=== PATIENT | female | born 1955 | race Caucasian/White ===

== ENCOUNTER → 2020-03-12 08:20 | Outpatient (CLI) | payer BC, SELFPAY ==
[2019-11-14 16:05] VITALS: BMI 35.4
[2020-03-12 10:43] LABS: Anion Gap 7 (5-15); BUN 16 mg/dL (7-18); BUN/Creat Ratio 24.8 RATIO (10-20); Calcium,Total 8.9 mg/dL (8.5-10.1); Chloride 109 mmol/L (98-107); Cholesterol 171 mg/dL (200); Creatinine, Serum 0.64 mg/dL (0.55-1.02); EST Glomerular Filtration Rate 99 mL/min (>60); Est Glom Filt Rate - Afr Amer 119 mL/min (>60); Glucose 93 mg/dL (74-106); High Density Lipoprotein 58 mg/dL; Potassium 4.1 mmol/L (3.5-5.1); Sodium Level 144 mmol/L (136-145); Triglycerides 85 mg/dL; Very Low Density Lipoprotein 17 mg/dL (5-40)
== END ==
PROVIDERS: PCP Family Medicine; Referring Provider Family Medicine; Visit Provider Family Medicine
DX: Z13.220 Encounter for screening for lipoid disorders (principal); Z13.1 Encounter for screening for diabetes mellitus
CPT/HCPCS: 36415; 80048; 80061

== ENCOUNTER → 2020-03-12 12:35 | Outpatient (CLI) | payer BC, SELFPAY ==
[2019-11-14 16:05] VITALS: BMI 35.4
--- NOTE | 2020-03-12 12:38 | BI_ITS ---
MAMMOGRAPHY - BILATERAL SCREENING REASON FOR EXAM: Female, 65 years old. Routine annual screening examination. PERTINENT HISTORY: Mother with breast cancer. TECHNIQUE: Digital bilateral breast brinda (3D mammographic acquisition) in the CC and MLO projections. 2-D mediolateral oblique (MLO) and craniocaudad (CC) views of both breasts were obtained. CAD: Full Field Digital Mammography with Computer Added Detection was performed. COMPARISON: Comparison is made with prior examination dated December 13, 2015. FINDINGS: Breast Composition: There are scattered areas of fibroglandular density. There are no dominant masses or suspicious calcifications. No other significant abnormalities are identified. There has been no significant change since the prior study. BI/SCREEN MAMM (CAD) W/BRINDA BILAT IMPRESSION: Stable bilateral screening mammogram. Yearly follow-up mammogram recommended. (A) ASSESSMENT CATEGORY: BIRADS Category 1: Negative. A letter regarding these results will be sent to the patient by the facility within 30 days. Approximately 10% of breast cancers are not detected by mammography. A normal mammogram should not delay biopsy of a clinically suspicious abnormality. [id number] Electronically Signed: Juventino Hernandez, at 9:16 EDT , Service support ,
--- NOTE | 2020-03-12 13:27 | STEWCON_ITS ---
Reason For Study: CHEST PAIN Stress Results Protocol: Stress Echocardiogram Maximum Predicted HR: 157 bpm Target HR: 133 bpm % Maximum Predicted HR: 103 % DurationHeart Rate Stage (mm:ss) (bpm) BP Comment BASELINE 72 118/78DILUTED DEFINITY 2 CC USED ARIEL PROTOCOL- STAGE 1 3:00 118 124/72NO SX ARIEL PROTOCOL- STAGE 2 3:00 129 158/78NO SX ARIEL PROTOCOL- STAGE 3 3:00 162 162/80FATIGUE, NO CP RECOVERY 85 120/78 Stress Duration: 9:00 mm:ss Maximum Stress HR: 162 bpm Baseline Echocardiogram Findings Stress Echo Wall motion Data Resting WM Intermediate WM Stress WM Resting Wall Motion Wall Motion Stress All segments Normal. All segments Hyperkinetic. Ejection Fraction 55 %. Ejection Fraction 65 %. Stress Results Heart rate response: Appropriate Blood pressure response: Normal resting blood pressure-appropriate response Arrhythmias: No cardiac dysrhythmias during exercise or recovery Functional capacity: Good Stopped secondary to: Fatigue. EKG Data Baseline ECG: Sinus rhythm; incomplete right bundle branch block pattern. Peak exercise ECG: No obvious ECG changes. Symptoms with Stress No complaint of chest discomfort during exercise or recovery. Interpretation Summary 1. Technically difficult study 2. Contrast injection performed 3. Negative (adequate) stress echocardiogram Ordering Physician: Kurtis Malik Referring Physician: Kurtis Malik Performed By: Aleta Odom, MEERA, RVT
== END ==
PROVIDERS: PCP Family Medicine; Referring Provider Family Medicine; Visit Provider Family Medicine
DX: Z12.31 Encounter for screening mammogram for malignant neoplasm of breast (principal); R07.9 Chest pain, unspecified
CPT/HCPCS: 77063; 77067; 93017; 93350; Q9957; A4216; C8928

== ENCOUNTER → 2020-04-05 14:56 | Outpatient (CLI) | payer BC, SELFPAY ==
[2019-11-14 16:05] VITALS: BMI 35.4
--- NOTE | 2020-04-05 14:58 | RAD_ITS ---
STUDY: X-RAY - LEFT KNEE REASON FOR EXAM: Female, 65 years old. Pain with no known injury. TECHNIQUE: 4 view(s) of the knee. COMPARISON: 07/24/2014 left knee radiographs. 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 There is now complete loss of joint space medially, and mild degenerative lateral offset of the tibia in relation to the femur. Small joint effusion. No apparent acute fracture or osseous destruction. 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 Small joint effusion. Electronically Signed: Jaiden Buck, at 7:53 EDT Tel , Service support ,
== END ==
PROVIDERS: PCP Family Medicine; Referring Provider Family Medicine; Visit Provider Family Medicine
DX: M25.569 Pain in unspecified knee (principal)
CPT/HCPCS: 73564

== ENCOUNTER → 2021-01-09 11:12 | Outpatient (CLI) | payer OTHER, SELFPAY ==
[2020-12-14 08:36] VITALS: BMI 27.1
--- NOTE | 2021-01-09 11:16 | RAD_ITS ---
STUDY: X-RAY - LEFT KNEE REASON FOR EXAM: Left knee pain, left knee injury last night. TECHNIQUE: 4 view(s) of the knee. COMPARISON: Radiographs 04/05/2020. FINDINGS: Normal visualized distal femur. Normal visualized proximal tibia and fibula. Normal proximal tibiofibular articulation. There is severe joint space loss of the medial femorotibial compartment and lateral subluxation of the tibia as on the prior study. There are marginal osteophytes without joint space narrowing of the lateral femorotibial compartment. There are marginal osteophytes with moderate joint space narrowing of the patellofemoral articulation. There is a joint effusion. RAD/Knee 4 or More Views IMPRESSION: Arthrosis of the medial femorotibial and patellofemoral compartments. Joint effusion. Electronically Signed: Mo Gonzales MD at 11:42 EDT Tel , Service support ,
== END ==
PROVIDERS: PCP Family Medicine; Referring Provider Family Medicine; Visit Provider Family Medicine
DX: S89.92XA Unspecified injury of left lower leg, initial encounter (principal)
CPT/HCPCS: 73564

== ENCOUNTER → 2021-03-28 13:51 | Outpatient (CLI) | payer OTHER, SELFPAY ==
[2020-12-14 08:36] VITALS: BMI 27.1
--- NOTE | 2021-03-28 13:54 | BI_ITS ---
MAMMOGRAPHY - BILATERAL SCREENING REASON FOR EXAM: Female, 66 years old. Routine annual screening examination. PERTINENT HISTORY: Sister with breast cancer. Mother with breast cancer. TECHNIQUE: Digital bilateral breast brinda (3D mammographic acquisition) in the CC and MLO projections. 2-D mediolateral oblique (MLO) and craniocaudad (CC) views of both breasts were obtained. CAD: Full Field Digital Mammography with Computer Added Detection was performed. COMPARISON: Comparison is made with prior study dated 03/12/2020. FINDINGS: Breast Composition: There are scattered areas of fibroglandular density. There are no dominant masses or suspicious calcifications. Stable small benign-appearing axillary lymph nodes. No other significant abnormalities are identified. There has been no significant change since the prior study. BI/SCRN MAMM (CAD)W/BRINDA BILAT IMPRESSION: Stable bilateral screening mammogram. Yearly follow-up mammogram recommended. (A) ASSESSMENT CATEGORY: BIRADS Category 2: Benign. A letter regarding these results will be sent to the patient by the facility within 30 days. Approximately 10% of breast cancers are not detected by mammography. A normal mammogram should not delay biopsy of a clinically suspicious abnormality. [id number] Electronically Signed: Juventino Hernandez MD at 14:49 EDT , Service support ,
== END ==
PROVIDERS: PCP Family Medicine; Referring Provider Family Medicine; Visit Provider Family Medicine
DX: Z12.31 Encounter for screening mammogram for malignant neoplasm of breast (principal)
CPT/HCPCS: 77063; 77067

== ENCOUNTER → 2021-06-11 07:21 | Outpatient (CLI) | payer OTHER, SELFPAY ==
[2020-12-14 08:36] VITALS: BMI 27.1
[2021-06-11 10:25] LABS: Absolute Lymphocyte Count 1.25 X10^3/uL (0.83-4.51); Absolute Neutrophil Count 2.8 X10^3/uL (2.0-7.7); Basophil# 0.03 X10^3/uL; Basophil% 0.6 % (0-1); Eosinophil# 0.17 X10^3/uL; Eosinophils% 3.5 % (0-5); Hematocrit 42.4 % (37-47); Hemoglobin 13.7 g/dL (12.0-15.0); Lymphocyte # 1.25 X10^3/ul (0.83-4.51); Lymphocyte % 25.8 % (19-41); Mean Corp Hgb Conc 32.3 g/dL (32-36); Mean Corpuscular Hgb 31.2 pg (27.0-32.0); Mean Corpuscular Volume 96.6 fL (81-99); Mean Platelet Vol. 9.6 fl (6.2-12.0); Monocyte# 0.56 X10^3/uL; Monocyte% 11.6 % (0-10); NRBC Flagged by Analyzer 0 % (0-5); Neutrophil % 57.9 % (47-70); Platelet Count 234 K/mm3 (150-450); RBC Distribution Width SD 42.9 fl (35.1-43.9); Red Blood Count 4.39 M/mm3 (4.2-5.4); White Blood Count 4.8 K/mm3 (4.4-11.0)
[2021-06-11 10:58] LABS: ALB/GLOB Ratio 1.1 RATIO (0.9-2.4); AST(SGOT) 11 U/L (15-37); Alanine Aminotransfer ALT/SGPT 24 U/L (13-56); Albumin, Serum 3.6 g/dL (3.2-5.0); Alkaline Phosphatase 108 U/L (45-117); Anion Gap 6 (5-15); BUN 19 mg/dL (7-18); BUN/Creat Ratio 39.2 RATIO (10-20); Calcium,Total 8.8 mg/dL (8.5-10.1); Chloride 107 mmol/L (98-107); Creatinine, Serum 0.48 mg/dL (0.55-1.02); EST Glomerular Filtration Rate 137 mL/min (>60); Est Glom Filt Rate - Afr Amer 165 mL/min (>60); Globulin 3.3 g/dL (2.2-4.2); Glucose 78 mg/dL (74-106); Potassium 3.7 mmol/L (3.5-5.1); Protein, Total 6.9 g/dL (6.4-8.2); Sodium Level 141 mmol/L (136-145)
[2021-06-12 14:59] LABS: ANTINUCLEAR ANTIBODIES DIRECT Positive (Negative)
[2021-06-17 12:09] LABS: Anti-Centromere B Ab <0.2 AI (0.0-0.9); Anti-Chromatin <0.2 AI (0.0-0.9); Anti-Jo <0.2 AI (0.0-0.9); Anti-Scleroderma-70 AB <0.2 AI (0.0-0.9); RNP Ab <0.2 AI (0.0-0.9); SJOGREN'S Anti-SS-A test 1.2 AI (0.0-0.9); SJOGREN'S Anti-SS-B test < 0.2 AI (0.0-0.9); Smith Ab <0.2 AI (0.0-0.9)
[2021-06-17 16:55] LABS: Anti-dsDNA Ab 3 IU/mL (0-9)
== END ==
PROVIDERS: PCP Family Medicine; Referring Provider Family Medicine; Visit Provider Family Medicine
DX: R07.89 Other chest pain (principal)
CPT/HCPCS: 36415; 80053; 85025; 86038; 86225; 86235

== ENCOUNTER → 2021-06-18 17:54 | Outpatient (CLI) | payer OTHER, SELFPAY | PROVIDERS: PCP Family Medicine; Visit Provider Family Medicine | DX: U07.1 COVID-19 (principal) | CPT/HCPCS: 87635; U0005; U0003 ==

== ENCOUNTER 2021-06-23 14:26 | Outpatient (CLI) | payer OTHER, SELFPAY ==
[2021-06-23] MEDS: 0.9% Saline Lock 10 ML Syringe IV (14:55)
[2021-06-23 15:03] VITALS: BP 101/41; PULSE 73; RESP 16; TEMP 37.1; O2SAT 96; BMI 29.2
[2021-06-23 15:39] VITALS: BP 109/65; PULSE 78; RESP 16; TEMP 36.8; O2SAT 97
[2021-06-23 16:39] VITALS: BP 110/64; PULSE 85; RESP 16; TEMP 37.6; O2SAT 97
== END 2021-06-23 16:50 | disposition home or self-care (01) ==
LOC: ICUOUT 14:27 → MS2 14:27
PROVIDERS: PCP Family Medicine; Referring Provider Nurse Practitioner Acute Care; Visit Provider Nurse Practitioner Acute Care
DX: Z23 Encounter for immunization (principal); U07.1 COVID-19
CPT/HCPCS: J7050; M0243; A4216; Q0244

== ENCOUNTER → 2021-07-01 09:17 | Outpatient (CLI) | payer OTHER, SELFPAY ==
--- NOTE | 2021-07-01 09:19 | RAD_ITS ---
STUDY: X-RAY - ESOPHAGUS (BARIUM SWALLOW) WITH FLUOROSCOPY REASON FOR EXAM: Female, 66 years old. OTHER CHEST PAIN TECHNIQUE: 16 view(s) of the esophagus were obtained following swallowing of barium. FLUOROSCOPY TIME (if supplied): (31 seconds) minutes/seconds COMPARISON: None. FINDINGS: There is no demonstrated esophageal foreign body. There is no demonstrated stricture or mucosal abnormality. Normal gastroesophageal junction, without a demonstrated hiatal hernia. The patient ingested a 12 mm tablet of barium without any difficulty. Normal visualized aortic arch and descending thoracic aorta. Normal visualized pulmonary parenchyma. There are diffuse degenerative changes of the visualized thoracic spine. RAD/Esophagus Dual Contrast IMPRESSION: Normal plain film x-ray examination (barium swallow) of the esophagus. Electronically Signed: Juventino Hernandez MD at 10:05 EDT , Service support ,
== END ==
PROVIDERS: PCP Family Medicine; Referring Provider Family Medicine; Visit Provider Family Medicine
DX: R07.89 Other chest pain (principal)
CPT/HCPCS: 74221

== ENCOUNTER → 2021-10-06 06:25 | Outpatient (CLI) | payer OTHER, SELFPAY ==
--- NOTE | 2021-10-06 17:13 | STRESSREP ---
Stress Test Report Exercise myocardial perfusion stress test. 66-year-old lady with a history of chest pain. Resting EKG demonstrates normal sinus rhythm with a rate of 70 bpm incomplete right bundle branch block is noted resting blood pressure is 112/74 mmHg. The patient exercised according to regular Jonnathan protocol for total duration of 6 minutes. The maximum heart rate attained was 144 bpm which was 92% of max impact at heart rate the maximum workload was 7 metabolic equivalents. At rest there were no ST or T wave changes noted to suggest ischemia and at peak exercise upsloping ST changes were noted with did not meet the criteria for ischemia. No clinical angina was noted. The test was terminated due to the target heart rate being achieved. The peak blood pressure was 134/68 mmHg. Myocardial perfusion protocol. 10.6 mCi of technetium 99m sestamibi was injected at rest. The patient exercised according to regular Jonnathan protocol for total duration of 6 minutes. At peak exercise 34.8 mCi of technetium 99m sestamibi was injected stress images were obtained stress and rest images were reconstructed and compared in the short axis vertical long and horizontal long axis. Gated images were also obtained for Perfusion SPECT analysis: Review of the stress images demonstrate normal uptake of tracer noted in all areas of the myocardium. The resting images similarly demonstrate normal uptake of tracer noted in all areas of the myocardium. No areas of reversibility are noted to suggest ischemia and no previous infarct is noted. Gated SPECT analysis: The gated ejection fraction is noted to be 72%. Conclusion: Normal exercise myocardial perfusion stress test at a moderate workload. No clinical angina noted. No ischemia present.
== END ==
PROVIDERS: PCP Family Medicine; Referring Provider Internal Medicine Cardiovascular Disease; Visit Provider Internal Medicine Cardiovascular Disease
DX: R07.9 Chest pain, unspecified (principal)
CPT/HCPCS: 78452; 93017; A9500; A4216

== ENCOUNTER 2022-01-24 08:09 | Emergency (ER) | payer BC, SELFPAY ==
[2022-01-24 08:09] VITALS: BP 129/66; PULSE 82; RESP 20; TEMP 35.8; O2SAT 99; BMI 30.9
--- NOTE | 2022-01-24 08:23 | CT_ITS ---
EXAM: CT ABDOMEN AND PELVIS WITHOUT INTRAVENOUS CONTRAST CLINICAL INDICATION: Right flank pain TECHNIQUE: Helically acquired images were obtained of the abdomen and pelvis without intravenous contrast. This CT exam was performed using one or more of the following dose reduction techniques: automated exposure control, adjustment of the mA and/or kV according to patient size, and/or use of iterative reconstruction technique. This report was created using [employer] report generation technology. COMPARISON: None. FINDINGS: LOWER THORAX: Unremarkable. Lung bases are clear. No cardiomegaly. No significant pericardial effusion. 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 GALLBLADDER AND BILE DUCTS: Unremarkable. No calcified gallstones. No gallbladder distention or wall edema. No intra- or extrahepatic biliary ductal dilation. PANCREAS: Unremarkable. No focal cystic mass. SPLEEN: Unremarkable. Normal size without focal cystic or solid mass. ADRENALS: 3 cm low-density left adrenal mass likely due to adenoma. KIDNEYS AND URETERS: Mild right hydronephrosis and hydroureter without definite ureteral stone. Small nonobstructing left renal stones, the largest measures about 4 mm. No evidence of left hydronephrosis. Small calcifications on images 89 and 96 appears to be adjacent but not within the ureter. Normal renal size and position. STOMACH AND BOWEL: Unremarkable. No stomach or bowel distention. No focal inflammatory change. PELVIS: APPENDIX: No evidence of acute appendicitis. BLADDER: The bladder is not well-distended and difficult to evaluate. REPRODUCTIVE: Unremarkable as visualized. No mass. ABDOMEN and PELVIS: INTRAPERITONEAL SPACE: Unremarkable. No ascites or other fluid collection. No free air. 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 No suspicious lytic or blastic abnormality. SOFT TISSUES: Unremarkable. No discrete abdominal or pelvic wall hernia. VASCULATURE: Unremarkable. Abdominal aorta is non-dilated. LYMPH NODES: Unremarkable. No enlarged lymph nodes. CT/Abdomen/Pelvis without Cont IMPRESSION: 1. Mild right hydronephrosis and hydroureter without definite ureteral stone as described above. Recently passed stone is possible. 2. Small nonobstructing left renal stones, the largest measures about 4 mm. No evidence of left hydronephrosis. 3. 3 cm low-density left adrenal mass likely due to adenoma. Follow-up exam in one year with washout study or MRI with contrast is recommended. 4. Otherwise no focal acute inflammatory process. Electronically Signed: Magno Borja MD at 9:11 EDT ,
--- NOTE | 2022-01-24 08:24 | EDS_ITS ---
HPI HPI - GI History of Present Illness Chief Complaint: Flank Pain Detail of Chief Complaint: Right flank pain that started around 5 AM suddenly Informant: patient Abdominal Pain/Flank Pain Current Severity: 10/10 Nausea/Vomiting/Emesis GI Symptom: Positive for Nausea and Vomiting Narrative Narrative: Patient presents to the emergency department complaint of severe right flank pain that started around 5 AM. Patient states initially pain was right lower quadrant and now seems to radiate to the back. She feels a lot of pressure in her pelvis. She had similar pain 20 years ago when she had a kidney stone. She denies urinary symptoms. She denies hematuria. She rates her pain a 10 out of 10. She has had nausea and vomiting with this. She denies diarrhea. Prior similar symptoms: Yes PFSH PFSH Medical History COVID-19 virus detected (06/19/21) Seasonal allergies Home Medications flaxseed oil 1,000 mg capsule 1,000 mg PO DAILY 12/14/20 [History Last Taken Unknown] multivitamin,[id number]-[id number]-[id number] 1 tab PO DAILY 12/14/20 [History Last Taken Unknown] nitroglycerin 0.4 mg SUBLINGUAL Q5M 06/23/21 [History Last Taken Unknown] acetaminophen 500 mg capsule 500 mg PO Q6H PRN 11/05/21 [History Last Taken Unknown] aspirin 81 mg tablet,delayed release 81 mg PO DAILY 11/05/21 [History Last Taken Unknown] meloxicam 7.5 mg tablet 7.5 mg PO BID tab 11/05/21 [History Last Taken Unknown] omeprazole 40 mg capsule,delayed release 40 mg PO DAILY #90 cap 11/05/21 [Rx Last Taken Unknown] tramadol 100 mg tablet 100 mg PO BID PRN 11/05/21 [History Last Taken Unknown] hydrocodone-acetaminophen 1 tab PO Q4H PRN PRN 2 Days #10 tablet 01/24/22 [Rx Last Taken Unknown] ondansetron 4 mg PO Q8H PRN PRN #10 tab 01/24/22 [Rx Last Taken Unknown] Allergy/AdvReac Type Severity Reaction Status Date / Time No Known Allergies Allergy Verified 01/24/22 08:09 Family History Mother Breast cancer Sister Breast cancer Father Cancer Surgical History H/O knee surgery Rectocele Social History Smoking Status: Never smoker alcohol intake: never ROS ROS ED Constitutional Constitutional ED: Reports systems reviewed and no addt'l complaints, except as documented; Denies body ache(s), change in weight or chills Eyes Eyes: Denies acute decrease in peripheral vision, change in vision, double vision or loss of vision ENT ENT ED: Reports none; Denies ear pain, lip swelling, loss taste/smell, neck pain, otalgia or sore throat Cardiovascular Cardiovascular: Reports none; Denies abdominal pain, chest pain with activity, leg edema, lightheadedness, palpitations, rapid heart rate or syncope Respiratory/Chest Respiratory/Chest: Reports none; Denies change in mental status, dry cough, dyspnea, hemoptysis, shortness of breath at rest or shortness of breath with exertion Gastrointestinal Gastrointestinal: Reports none, abdominal pain, nausea and vomiting; Denies change in stool character, diarrhea, hematemesis, hematochezia, melena or rectal bleeding Genitourinary Genitourinary ED: Reports none; Denies abdominal discomfort, anuria, dysuria, genital pain or polyuria Musculoskeletal Musculoskeletal: Reports none and back pain; Denies arthralgias, difficulty walking, extremity pain, muscle weakness or myalgias Integumentary Reports none; Denies abscess or rash Neurologic Neurologic: Reports none; Denies abnormal gait, confusion, focal weakness, frequent falls, headache(s), loss of vision, numbness, paresthesias, radicular pain, vertigo or weakness Psychiatric Psychiatric: Reports systems reviewed and no addt'l complaints, except as documented and none; Denies behavioral changes, confusion, difficulty concentrating, hallucinations, suicidal ideation, tactile hallucinations or visual hallucinations Endocrine Endocrinology: Denies none, cold intolerance, excessive sweating, fatigue or heat intolerance Hematologic/Lymphatic Hematologic/Lymphatic: Reports none; Denies anemia, easy bleeding or easy bruising Allergic/Immunologic Allergic/Immunologic ED: Denies as per HPI, none, lip swelling, mouth swelling, throat swelling, tongue swelling or hives EXAM Physical Exam Const Vital Signs: 04/02/22 08:09 Temperature 96.4 F L Temperature Source Temporal Pulse Rate 82 Respiratory Rate 20 H Blood Pressure 129/66 H Blood Pressure Mean 87 Pulse Ox 99 Oxygen Delivery Method Room Air Positive well nourished and well developed General Appearance ED: well developed and NAD HEENT Reports TM's clear and moist mucous membranes normocephalic and atraumatic; Negative for trauma or tenderness Tympanic Membrane ED: Yes TM's clear Eyes PERRL and EOMs intact bilaterally General Eye ED: Negative for pale conjunctiva or scleral icterus Neck no lymphadenopathy, supple and no JVD General: Negative for tenderness Chest Wall inspection of chest normal and palpation of chest normal Chest: Negative for tenderness Resp normal respiratory effort and clear to auscultation bilaterally Effort and Inspection: Negative for respiratory distress or pain with movement Auscultation: Negative for rhonchi, wheezes or diminished lung sounds Cardio regular rate, regular rhythm, S1 normal heart sound, S2 normal heart sound and no murmurs Peripheral Pulses: pulses 2+ throughout GI normal to inspection, nondistended, normoactive bowel sounds, soft to palpation, non-distended and no masses GI Narrative: Patient has tenderness to the right lower quadrant with some guarding. She has CVA tenderness on the right. No rebound, rigidity, or peritoneal signs. No masses palpated. Palpation: tender Back/Spine no thoracic nor lumbar tenderness Back/Spine Narrative: Right CVA tenderness Extremity normal to inspection General Extremety ED: Negative for edema General Extremity: Negative for edema Neuro oriented x3, CN's II-XII intact bilaterally, no sensory deficits noted and gait normal Sensorium / Orientation: awake, alert, oriented to person, oriented to place and oriented to time Motor Exam: strength 5/5 throughout and strength abnormal Psych mental status grossly normal Skin no rashes or lesions noted and no wounds MDM MDM MDM Narrative Medical decision making narrative: IV line established. Patient was given Toradol, Dilaudid, and Zofran IV. Patient had good pain relief with that. On CT scan it was noted that she had a right hydroureter but did not note an obvious stone. It was postulated she may have passed a stone. Urine was positive for microscopic blood which would be in line with recent kidney stone. No signs of infection on the urine. At this point she will be discharged home with urine strainers. She was incidentally noted to have a adrenal adenoma on the left and radiology recommended MRI with contrast in 1 year to follow. I did advise the patient of this and gave her a copy of her CT results. Patient will be given a prescription for [place] for pain as well as Zofran for nausea. Patient will be given referral to urology for follow-up. Lab Data Attestation: I reviewed the patient's lab results. Labs: Laboratory Results - last 24 hr 01/24/22 01/24/22 01/24/22 08:30 08:30 08:41 WBC 11.4 H RBC 4.49 Hgb 14.6 Hct 41.8 MCV 93.1 MCH 32.5 H MCHC 34.9 RDW Std Deviation 41.2 RDW Coeff of Marian 11.9 Plt Count 305 MPV 9.0 Immature Gran % (Auto) 0.400 Neut % (Auto) 80.9 H Lymph % (Auto) 12.9 L [place] % (Auto) 4.4 Eos % (Auto) 1.1 Baso % (Auto) 0.3 Absolute Neuts (auto) 9.2 H Absolute Lymphs (auto) 1.47 Nucleated RBC % 0 Sodium 138 Potassium 4.1 Chloride 106 Carbon Dioxide 24.0 Anion Gap 8 BUN 23 H Creatinine 0.86 Estim Creat Clear Calc 56.32 Est GFR (MDRD) Af Amer 85 Est GFR (MDRD) Non-Af 70 BUN/Creatinine Ratio 26.7 H Glucose 146 H Calcium 9.6 Urine Color Yellow Urine Clarity Sl. Cloudy Urine pH 8.0 Ur Specific [place] 1.015 Urine Protein 15 H Urine Glucose (UA) Normal Urine Ketones 15 H Urine Occult Blood 250 H Urine Nitrite Negative Urine Bilirubin Negative Urine Urobilinogen Normal Ur Leukocyte Esterase 25 H Urine RBC 25-50 SEEN Urine WBC 0 SEEN Ur Squamous Epith Cells 0 SEEN Urine Bacteria 0 SEEN Urine Mucus 0 SEEN Radiography Diagnostic Testing: Clinical Impression(s) from Imaging Studies Abdomen/Pelvis CT 01/24/22 08:23 IMPRESSION: 1. Mild right hydronephrosis and hydroureter without definite ureteral stone as described above. Recently passed stone is possible. 2. Small nonobstructing left renal stones, the largest measures about 4 mm. No evidence of left hydronephrosis. 3. 3 cm low-density left adrenal mass likely due to adenoma. Follow-up exam in one year with washout study or MRI with contrast is recommended. 4. Otherwise no focal acute inflammatory process. Electronically Signed: Magno Borja MD at 9:11 EDT , Discharge Plan Triage Chief Complaint: Flank Pain ED Provider: Jamel Koehler Dx/Rx/DC Orders Clinical Impression: Urolithiasis Instructions: ED Kidney Stone w/ Colic Prescriptions: New hydrocodone-acetaminophen [hydrocodone-acetaminophen] 1 TABLET tablet 1 tab PO Q4H PRN PRN (Reason: Pain) 2 Days Qty: 10 RF: 0 ondansetron [ondansetron] 4 MG tablet 4 mg PO Q8H PRN PRN (Reason: Nausea) Qty: 10 RF: 0 No Action multivitamin,sl-phxm-[id number] tablet 1 tab PO DAILY RF: 0 flaxseed oil 1,000 mg capsule 1,000 mg PO DAILY RF: 0 meloxicam 7.5 mg tablet 7.5 mg PO BID RF: 0 aspirin [Adult Aspirin Regimen] 81 mg tablet,delayed release (DR/EC) 81 mg PO DAILY RF: 0 tramadol 100 mg tablet 100 mg PO BID PRNRF: 0 acetaminophen 500 mg capsule 500 mg PO Q6H PRNRF: 0 omeprazole 40 mg capsule,delayed release(DR/EC) 40 mg PO DAILY Qty: 90 RF: 2 nitroglycerin 0.4 mg tablet, sublingual 0.4 mg sublingual Q5M RF: 0 Primary Care Provider: Tobin Cevallos Referrals: Tobin Cevallos MD [Primary Care Provider] - Deborah Meneses MD [STAFF PHYSICIAN] - 3-5 Days Activity Restrictions/Additional Instructions: Radiology recommended follow-up MRI in 1 year to evaluate left adrenal adenoma Disposition Disposition: Home, Self Care
[2022-01-24 08:35] LABS: Absolute Lymphocyte Count 1.47 X10^3/uL (0.83-4.51); Absolute Neutrophil Count 9.2 X10^3/uL (2.0-7.7); Basophil# 0.03 X10^3/uL; Basophil% 0.3 % (0-1); Eosinophil# 0.12 X10^3/uL; Eosinophils% 1.1 % (0-5); Hematocrit 41.8 % (37-47); Hemoglobin 14.6 g/dL (12.0-15.0); Lymphocyte # 1.47 X10^3/ul (0.83-4.51); Lymphocyte % 12.9 % (19-41); Mean Corp Hgb Conc 34.9 g/dL (32-36); Mean Corpuscular Hgb 32.5 pg (27.0-32.0); Mean Corpuscular Volume 93.1 fL (81-99); Monocyte% 4.4 % (0-10); NRBC Flagged by Analyzer 0 % (0-5); Neutrophil # 9.24 X10^3/uL (2.7-7.7); Neutrophil % 80.9 % (47-70); Platelet Count 305 K/mm3 (150-450); RBC Distribution Width CV 11.9 % (11.6-14.6); RBC Distribution Width SD 41.2 fl (35.1-43.9); Red Blood Count 4.49 M/mm3 (4.2-5.4); White Blood Count 11.4 K/mm3 (4.4-11.0)
[2022-01-24] MEDS: Ondansetron 4 MG/2 ML Vial IV (08:38)
[2022-01-24] MEDS: Ketorolac 15 MG/ML Vial IV (08:38)
[2022-01-24] MEDS: HYDROmorphone 1 MG/ML Syringe IV (08:39)
[2022-01-24] MEDS: 0.9% Normal Saline 1,000 ML 150 ML IV (08:39)
[2022-01-24 08:44] LABS: Bacteria 0 SEEN /hpf (None Seen); Mucous, Urine 0 SEEN /hpf (<or=2+); Squamous Epithelial Cells - UA 0 SEEN /hpf (5-10); White Blood Cells 0 SEEN /hpf (0-5)
[2022-01-24 08:50] LABS: Color, Urine Yellow (Yellow); Glucose, Dipstick Normal (Normal); Ketone-Dipstick 15 mg/dl (Negative); Leukocyte Esterase-Dipstick 25 /ul (Negative); Nitrite-Dipstick Negative (Negative); Occult Blood-Urine 250 /ul (Negative); Protein-Dipstick 15 mg/dl (Negative); Specific Gravity, Urine 1.015 (1.002-1.030); Urine Bilirubin Dipstick Negative (Negative); Urine Clarity Sl. Cloudy (Clear); Urine Urobilinogen Normal (Normal)
[2022-01-24 08:52] LABS: Anion Gap 8 (5-15); BUN 23 mg/dL (7-18); BUN/Creat Ratio 26.7 RATIO (10-20); Calcium,Total 9.6 mg/dL (8.5-10.1); Chloride 106 mmol/L (98-107); Creatinine, Serum 0.86 mg/dL (0.55-1.02); EST Glomerular Filtration Rate 70 mL/min (>60); Est Glom Filt Rate - Afr Amer 85 mL/min (>60); Estimated Creatinine Clearance 56.32 ml/min; Glucose 146 mg/dL (74-106); Potassium 4.1 mmol/L (3.5-5.1); Sodium Level 138 mmol/L (136-145)
[2022-01-24 09:05] LABS: Red Blood Cells-Urine 25-50 SEEN /hpf (0-5)
[2022-01-24 09:29] VITALS: BP 138/74; PULSE 62; RESP 15; O2SAT 98
== END 2022-01-24 09:31 | disposition home or self-care (01) ==
PROVIDERS: Emergency Provider Emergency Medicine; PCP Family Medicine; Visit Provider Emergency Medicine
DX: N13.2 Hydronephrosis with renal and ureteral calculous obstruction (principal); Z80.3 Family history of malignant neoplasm of breast; D35.02 Benign neoplasm of left adrenal gland; Z87.442 Personal history of urinary calculi; Z86.16 Personal history of COVID-19
CPT/HCPCS: 74176; 80048; 81001; 85025; 96361; 96374; 96375; 99284; J7030; A4216; J2405

== ENCOUNTER 2022-01-26 15:59 | Outpatient (CLI) | payer BC, SELFPAY ==
--- NOTE | 2022-01-26 16:02 | RAD_ITS ---
STUDY: X-RAY - ABDOMEN/PELVIS REASON FOR EXAM: Female, 67 years old. KIDNEY STONE TECHNIQUE: Single AP view of the abdomen / pelvis. COMPARISON: CT abdomen pelvis 01/24/2022 FINDINGS: Multiple calculi are visualized in the pelvis which correlate with phleboliths on the prior CT. An additional calculus on the prior CT in the right pelvis is not visualized on the current study. Surgical clips in the left pelvis again seen. Mild increased stool. Nonobstructive bowel gas pattern Evaluation for free air is limited on supine radiographs. No acute osseous abnormality. RAD/Abdomen Single View IMPRESSION: No discrete calculus visualized to correlate with prior right pelvic calculus, may represent interval migration of distal ureteral calculus. Electronically Signed: Jp Landry MD at 7:25 EDT ,
== END 2022-01-26 23:59 | disposition home or self-care (01) ==
LOC: MTRAD 16:01
PROVIDERS: PCP Family Medicine; Referring Provider Urology; Visit Provider Urology
DX: N20.0 Calculus of kidney (principal)
CPT/HCPCS: 74018

== ENCOUNTER 2022-01-30 16:54 | Outpatient (CLI) | payer BC, SELFPAY ==
--- NOTE | 2022-01-30 16:57 | US_ITS ---
RENAL ULTRASOUND CLINICAL HISTORY: R HYDRONEPHROSIS. TECHNIQUE: [place] scale and limited color imaging of the kidneys, bladder, inferior vena cava, and aorta. COMPARISON: None FINDINGS: The right kidney measures 10.4 cm. The echogenicity is normal. There is no hydronephrosis or perinephric collection. There is no focal renal mass or calculus seen. The left kidney measures 10.2 cm. The echogenicity is normal. There is no hydronephrosis or perinephric collection. Hyperechoic 5 mm structure in the superior pole the left kidney. There is no focal renal mass. Bladder is within normal limits. Prevoid bladder volume = 195 cc. Bilateral ureteral jets visualized. US/Kidney and Bladder IMPRESSION: No hydronephrosis. 5 mm hyperechoic structure within the superior pole the left kidney, may represent the back wall of a vascular calcification or nonobstructive calculus. Electronically Signed: Jp Landry MD at 8:00 EDT ,
== END 2022-01-30 23:59 | disposition home or self-care (01) ==
LOC: US 16:56
PROVIDERS: PCP Family Medicine; Referring Provider Urology; Visit Provider Urology
DX: N13.30 Unspecified hydronephrosis (principal)
CPT/HCPCS: 76770

== ENCOUNTER → 2022-03-30 | Outpatient (CLI) | payer MEDICARE, SELFPAY ==
--- NOTE | 2022-03-30 07:26 | BI_ITS ---
MAMMOGRAPHY - BILATERAL SCREENING REASON FOR EXAM: Female, 67 years old. Routine annual screening examination. PERTINENT HISTORY: Sister with breast cancer. Mother with breast cancer. TECHNIQUE: Digital bilateral breast brinda (3D mammographic acquisition) in the CC and MLO projections. 2-D mediolateral oblique (MLO) and craniocaudad (CC) views of both breasts were obtained. CAD: Full Field Digital Mammography with Computer Added Detection was performed. COMPARISON: Comparison is made with prior study dated 03/28/2021 and 03/12/2020. FINDINGS: Breast Composition: There are scattered areas of fibroglandular density. There are no dominant masses or suspicious calcifications. No other significant abnormalities are identified. There has been no significant change since the prior study. BI/SCRN MAMM (CAD)W/BRINDA BILAT IMPRESSION: Stable bilateral screening mammogram. Yearly follow-up mammogram recommended. (A) ASSESSMENT CATEGORY: BIRADS Category 1: Negative. A letter regarding these results will be sent to the patient by the facility within 30 days. Approximately 10% of breast cancers are not detected by mammography. A normal mammogram should not delay biopsy of a clinically suspicious abnormality. [id number] Electronically Signed: Juventino Hernandez MD at 8:33 EDT ,
== END | disposition home or self-care (01) ==
LOC: OPBI 07:25
PROVIDERS: PCP Family Medicine; Referring Provider Family Medicine; Visit Provider Family Medicine
DX: Z12.31 Encounter for screening mammogram for malignant neoplasm of breast (principal); Z80.3 Family history of malignant neoplasm of breast
CPT/HCPCS: 77063; 77067

== ENCOUNTER 2022-07-05 12:08 | Emergency (ER) | payer MEDICARE, SELFPAY ==
[2022-07-05 12:09] VITALS: BP 122/61; PULSE 73; RESP 15; TEMP 36.6; O2SAT 97; BMI 34.9
--- NOTE | 2022-07-05 13:25 | EDS_ITS ---
HPI History of Present Illness Chief Complaint: Chest Pain Informant: patient Onset/Context/Timing Onset: Today Activity at onset: sudden Timing: Intermittent and Lasts (Approximately 2 hours) Quality: Positive for Heaviness Location: Right Parasternal Worsened By: Nothing Relieved By: Nothing Associated Symptoms: Positive for Diaphoresis; Negative for Nausea, Vomiting, Dyspnea, Cough, Fever, Lightheadedness, Acid Reflux or Palpitations Narrative Narrative: Patient presents with chest pain that began today. Patient states she was seated when her pain began. Patient states it began approximately 10:30 AM today. Patient states it lasted approximately 2 hours. Patient states it resolved on its own. Patient states nothing makes it better nothing makes it worse. Patient states she did break out into a sweat with the pain. Patient denies any nausea or vomiting. Patient denies any shortness of breath or cough. Patient denies any lightheadedness or palpitations. Patient states her pain radiated into her jaw, teeth and then into her right scapular area. CVD Risk Factors: Negative for Hypertension, Diabetes, Hypercholesterolemia, Family History 1' </=55 or Smoking PE Risk Factors: Negative for Recent Travel/Surgery, Recent Immobilization, Prior DVT or PE, Cancer or OCP + Smoking + >/=35 PFSH PFSH Medical History COVID-19 virus detected (06/19/21) Seasonal allergies Home Medications flaxseed oil 1,000 mg capsule 1,000 mg PO DAILY 12/14/20 [History Last Taken Unknown] multivitamin,my-[id number] (Complete Multivitamin tablet) 1 tab PO DAILY 12/14/20 [History Last Taken Unknown] nitroglycerin 0.4 mg sublingual tablet 0.4 mg sublingual Q5M chest pain 06/23/21 [History Last Taken Unknown] acetaminophen 500 mg capsule 500 mg PO Q6H PRN Mild Pain (Scale Score 1-4) 11/05/21 [History Last Taken Unknown] aspirin 81 mg tablet,delayed release (Adult Aspirin Regimen) 81 mg PO DAILY 11/05/21 [History Last Taken Unknown] meloxicam 7.5 mg tablet 7.5 mg PO BID 11/05/21 [History Last Taken Unknown] omeprazole 40 mg capsule,delayed release 40 mg PO DAILY #90 caps 11/05/21 [Rx Last Taken Unknown] tramadol 100 mg tablet 100 mg PO BID PRN Severe Pain (Scale Score 7-10) 11/05/21 [History Last Taken Unknown] hydrocodone-acetaminophen 5-325mg 5mg-325mg 1 tab PO Q4H PRN PRN Pain 2 days #10 TABLETS 01/24/22 [Rx Last Taken Unknown] ondansetron 4 mg disintegrating tablet 4 mg PO Q8H PRN PRN Nausea #10 tabs 01/24/22 [Rx Last Taken Unknown] Allergy/AdvReac Type Severity Reaction Status Date / Time No Known Allergies Allergy Verified 01/24/22 08:09 Family History Mother Breast cancer Sister Breast cancer Father Cancer Surgical History H/O knee surgery Rectocele Social History Smoking Status: Never smoker alcohol intake: never ROS ROS ED Constitutional Constitutional ED: Denies chills or fever(s) Eyes Eyes: Denies blurry vision or change in vision ENT ENT ED: Denies rhinorrhea or sore throat Cardiovascular Cardiovascular: Reports chest pain; Denies palpitations Respiratory/Chest Respiratory/Chest: Denies cough or dyspnea Gastrointestinal Gastrointestinal: Denies abdominal pain, nausea or vomiting Genitourinary Genitourinary ED: Denies dysuria or hematuria Musculoskeletal Musculoskeletal: Denies back pain or neck pain Integumentary Denies abscess or rash Neurologic Neurologic: Denies headache(s) or weakness Allergic/Immunologic Allergic/Immunologic ED: Denies mouth swelling or urticaria EXAM Physical Exam Const Vital Signs: 07/05/22 12:09 07/05/22 12:09 07/05/22 12:21 Temperature 97.9 F Temperature Source Oral Pulse Rate 73 Respiratory Rate 15 Respiratory Effort Normal Non-Labored Blood Pressure 122/61 H Blood Pressure Mean 81 Pulse Ox 97 Oxygen Delivery Method Room Air 07/05/22 13:42 07/05/22 13:42 Temperature Temperature Source Pulse Rate 67 Respiratory Rate 48 H Respiratory Effort Blood Pressure 116/61 Blood Pressure Mean 79 Pulse Ox 96 Oxygen Delivery Method Room Air Room Air Positive well nourished, well developed and obese General Appearance ED: well developed Nutritional Appearance: obese HEENT normocephalic and atraumatic Eyes PERRL and EOMs intact bilaterally Neck supple and no JVD Chest Wall palpation of chest normal Resp normal respiratory effort and clear to auscultation bilaterally Effort and Inspection: Negative for respiratory distress Cardio regular rate, regular rhythm and no murmurs GI normal to inspection, nondistended, normoactive bowel sounds, soft to palpation, non-tender and non-distended Extremity normal to inspection General Extremety ED: Negative for edema or tenderness General Extremity: Negative for edema Neuro oriented x3, CN's II-XII intact bilaterally and no sensory deficits noted Sensorium / Orientation: awake and alert Motor Exam: strength 5/5 throughout Psych mental status grossly normal Heart Score History: Slightly/Non-Suspicious ECG: Normal Age: >/= 65 years Risk Factors: No Risk Factors Troponin: </= Normal Limit Score: 2 MDM MDM MDM Narrative Medical decision making narrative: EKG was obtained. On my interpretation, it showed a normal sinus rhythm with a rate of 70. [place] interval, QRS interval, and QTc intervals were all normal. [place] was normal. There are no acute ST or T wave changes. Portable 1 view chest x- ray was obtained. On my interpretation, lung philippe are clear. There is normal cardiac silhouette. Bony thorax is normal. There is no acute process noted. Radiologist also interpreted the x-ray and agrees. CBC was within normal limits. Basic metabolic profile was within normal limits. High-sensitivity troponin was less than 3. Patient has a HEART score of 2. Patient was advised that this is low risk for acute cardiac event. Patient patient had no further episodes of chest pain here in the emergency department. Patient was instructed to follow-up with her primary care physician in 5 to 7 days. Patient understood and was agreeable with the plan. All questions were answered. Lab Data Attestation: I reviewed the patient's lab results. Labs: Laboratory Results - last 24 hr 07/05/22 07/05/22 12:15 12:15 WBC 6.4 RBC 4.40 Hgb 13.9 Hct 42.3 MCV 96.1 MCH 31.6 MCHC 32.9 RDW Std Deviation 42.8 RDW Coeff of Marian 12.2 Plt Count 272 MPV 10.2 Immature Gran % (Auto) 0.500 Neut % (Auto) 70.1 H Lymph % (Auto) 19.2 [place] % (Auto) 8.3 Eos % (Auto) 1.4 Baso % (Auto) 0.5 Absolute Neuts (auto) 4.5 Absolute Lymphs (auto) 1.22 Nucleated RBC % 0 Sodium 138 Potassium 4.0 Chloride 107 Carbon Dioxide 26.0 Anion Gap 5 BUN 18 Creatinine 0.67 Estim Creat Clear Calc 72.29 Est GFR (MDRD) Af Amer 113 Est GFR (MDRD) Non-Af 93 BUN/Creatinine Ratio 26.7 H Glucose 104 Calcium 9.6 Troponin I High Sens < 3 L Radiography Chest X-Ray - ED: 1 View, Read by ED Physician, Read by Radiologist, Normal and No Acute Disease Diagnostic Testing: Clinical Impression(s) from Imaging Studies Chest X-Ray 07/05/22 13:31 IMPRESSION: Normal x-ray examination of the chest. Electronically Signed: Kenny Her MD at 14:03 EDT , EKG Initial EKG: Attestation: I personally reviewed and interpreted this EKG as follows: Interpretation: Sinus Rhythm (70) and No Acute Injury Pattern Prior EKG tracings: available for review Prior: Unchanged (09/24/2021) Discharge Plan Triage Chief Complaint: Chest Pain ED Provider: Tobin Daly Dx/Rx/DC Orders Clinical Impression: Chest pain of uncertain etiology, Obesity (BMI 30.0-34.9) Instructions: ED Chest Pain, Uncertain Cause Prescriptions: No Action multivitamin,dc-xnim-[id number] tablet 1 tab PO DAILY flaxseed oil 1,000 mg capsule 1,000 mg PO DAILY Rx Instructions: administer with a meal meloxicam 7.5 mg tablet 7.5 mg PO BID aspirin [Adult Aspirin Regimen] 81 mg tablet,delayed release (DR/EC) 81 mg PO DAILY tramadol 100 mg tablet 100 mg PO BID PRN (Reason: Severe Pain (Scale Score 7-10)) acetaminophen 500 mg capsule 500 mg PO Q6H PRN (Reason: Mild Pain (Scale Score 1-4)) omeprazole 40 mg capsule,delayed release(DR/EC) 40 mg PO DAILY Qty: 90 2RF nitroglycerin 0.4 mg tablet, sublingual 0.4 mg sublingual Q5M Label Comments: PLACE ONE TABLET UNDER THE TONGUE NEEDED FOR CHEST DISCOMFORT. MAY REPEAT IN 10 MINUTES, BUT IF A 3RD DOSE IS NEEDED CALL AMBULANCE. hydrocodone-acetaminophen [hydrocodone-acetaminophen] 1 TABLET tablet 1 tab PO Q4H PRN PRN (Reason: Pain) 2 Days Qty: 10 0RF ondansetron [ondansetron] 4 MG tablet 4 mg PO Q8H PRN PRN (Reason: Nausea) Qty: 10 0RF Primary Care Provider: Tobin Cevallos Referrals: Tobin Cevallos MD [Primary Care Provider] - 3-5 Days Disposition Disposition: Home, Self Care
--- NOTE | 2022-07-05 13:31 | RAD_ITS ---
STUDY: X-RAY CHEST REASON FOR EXAM: Female, 67 years old. chest pain TECHNIQUE: Single AP portable view of the chest. COMPARISON: 06/11/2021 FINDINGS: The lungs are clear and expanded. There is no demonstrated pleural abnormality. Normal size heart. Normal mediastinum and mauro. Normal visualized pulmonary arteries. Normal visualized aortic arch and descending thoracic aorta. Normal visualized thoracic spine. Normal visualized ribs, clavicles, and shoulders. There is no demonstrated abnormality of the visualized soft tissue structures of the upper abdomen. RAD/Chest 1 View (Portable) IMPRESSION: Normal x-ray examination of the chest. Electronically Signed: Kenny Her MD at 14:03 EDT ,
--- NOTE | 2022-07-05 13:31 | EKG12_ITS ---
Test Reason : Blood Pressure : / mmHG Vent. Rate : 070 BPM Atrial Rate : 070 BPM P-R Int : 152 ms QRS Dur : 096 ms QT Int : 392 ms P-R-T Axes : 016 052 033 degrees QTc Int : 423 ms Normal sinus rhythm Incomplete right bundle branch block Borderline ECG Confirmed by AVA SERRATO, CATHIE ([id number]), commissioning editor SUBHASH RICKS ([id number]) on 07/06/2022 10:27:46 AM Referred By: CLAIR Confirmed By:CATHIE ESCALANTE MD
[2022-07-05] MEDS: Aspirin 81 MG TAB.CHEW 324 MG PO (13:41)
[2022-07-05 13:42] VITALS: BP 116/61; PULSE 67; RESP 48; O2SAT 96
[2022-07-05 13:58] LABS: Absolute Lymphocyte Count 1.22 X10^3/uL (0.83-4.51); Absolute Neutrophil Count 4.5 X10^3/uL (2.0-7.7); Basophil# 0.03 X10^3/uL; Basophil% 0.5 % (0-1); Eosinophil# 0.09 X10^3/uL; Eosinophils% 1.4 % (0-5); Hematocrit 42.3 % (37-47); Hemoglobin 13.9 g/dL (12.0-15.0); Lymphocyte # 1.22 X10^3/ul (0.83-4.51); Lymphocyte % 19.2 % (19-41); Mean Corp Hgb Conc 32.9 g/dL (32-36); Mean Corpuscular Hgb 31.6 pg (27.0-32.0); Mean Corpuscular Volume 96.1 fL (81-99); Mean Platelet Vol. 10.2 fl (6.2-12.0); Monocyte# 0.53 X10^3/uL; Monocyte% 8.3 % (0-10); NRBC Flagged by Analyzer 0 % (0-5); Neutrophil # 4.46 X10^3/uL (2.7-7.7); Neutrophil % 70.1 % (47-70); Platelet Count 272 K/mm3 (150-450); RBC Distribution Width CV 12.2 % (11.6-14.6); RBC Distribution Width SD 42.8 fl (35.1-43.9); White Blood Count 6.4 K/mm3 (4.4-11.0)
[2022-07-05 14:09] LABS: Anion Gap 5 (5-15); BUN 18 mg/dL (7-18); BUN/Creat Ratio 26.7 RATIO (10-20); Calcium,Total 9.6 mg/dL (8.5-10.1); Chloride 107 mmol/L (98-107); Creatinine, Serum 0.67 mg/dL (0.55-1.02); EST Glomerular Filtration Rate 93 mL/min (>60); Est Glom Filt Rate - Afr Amer 113 mL/min (>60); Estimated Creatinine Clearance 72.29 ml/min; Glucose 104 mg/dL (74-106); Sodium Level 138 mmol/L (136-145); Troponin-I HS < 3 pg/mL (3.0-54.0)
== END 2022-07-05 15:35 | disposition home or self-care (01) ==
PROVIDERS: Emergency Provider Emergency Medicine; PCP Family Medicine; Visit Provider Emergency Medicine
DX: R07.9 Chest pain, unspecified (principal); E66.9 Obesity, unspecified; Z86.16 Personal history of COVID-19
CPT/HCPCS: 71045; 80048; 84484; 85025; 93005; 99285; A4216

== ENCOUNTER 2022-07-26 14:49 | Emergency (ER) | payer MEDICARE, SELFPAY ==
[2022-07-26 14:49] VITALS: BP 152/70; PULSE 97; RESP 18; TEMP 35.7; O2SAT 100; BMI 31.7
--- NOTE | 2022-07-26 15:06 | CT_ITS ---
STUDY: CT Abdomen And Pelvis W/O Contrast Injection 07/26/2022 4:12 PM REASON FOR EXAM: Female, 67 years old. Abdominal pain Kidney stone -- flank pain Individualized dose optimization techniques were used for this CT. COMPARISON: 01.24.22 TECHNIQUE: CT Abdomen And Pelvis W/O Contrast Injection FINDINGS: There are atherosclerotic calcifications of visualized coronary arteries. The visualized portions of the heart are within normal limits. Stable ill-defined hypodensities in the liver. Normal gallbladder and extrahepatic biliary system. Normal spleen. Normal pancreas.There is hepatomegaly with diffuse hepatic enlargement. There is a small, circumscribed, smooth, low attenuation left adrenal mass, consistent with an adrenal adenoma. Normal right adrenal gland. No acute findings of the right kidney. Mild hydronephrosis caused by left 2.5 mm distal ureteral stone. Series 2 image 142. Normal visualized stomach. Normal small intestine. There are multiple colonic diverticula consistent with diverticulosis. The appendix is visualized and appears normal. There are calcifications of the abdominal aorta. This is consistent for atherosclerotic disease. There is NO abdominal aortic aneurysm. Vascular workup can be obtained based on clinical correlation. Normal inferior vena cava. Subcentimeter mesenteric lymph nodes. Normal urinary bladder. There is absence of the uterus consistent with a prior hysterectomy. There is an umbilical hernia containing fat. There are diffuse degenerative changes of the visualized lumbar spine. Degenerative findings of the hips. There is a Grade 1 anterolisthesis of L5 on S1. CT/Abdomen/Pelvis without Cont IMPRESSION: (NOT LISTED IN ORDER OF SIGNIFICANCE) Mild hydronephrosis caused by left 2.5 mm distal ureteral stone. Series 2 image 142. Stable ill-defined hypodensities in the liver. Recommend hepatic MR. Stable left adrenal adenoma. No follow up required. Hysterectomy changes. Enlarged liver. Other findings as above. Electronically Signed: Rogerio Norton MD at 16:24 EDT ,
--- NOTE | 2022-07-26 15:16 | EX.ED.DYSGE1 ---
HPI <JOSEPHINE Rae - Last Filed: 07/26/22 16:58> History of Present Illness Chief Complaint: Flank Pain Narrative Narrative: [id number] female with history of kidney stones presents to the emergency department with left-sided flank pain that began at 11 AM today. Patient does have a known kidney stone on the side they have been keeping a watch on. Patient does see a urologist here in [place]. Patient came on abruptly, to the left flank, wrapping around the front. Patient states that it hurts while she is laying still so she has to keep moving. She denies any fevers or chills peer denies any urology symptoms. She does state to have nausea and vomiting. PFSH <JOSEPHINE Rae - Last Filed: 07/26/22 16:58> [facility] Medical History COVID-19 virus detected (06/19/21) Seasonal allergies Home Medications flaxseed oil 1,000 mg capsule 1,000 mg PO DAILY 12/14/20 [History Last Taken Unknown] multivitamin,[id number] (Complete Multivitamin tablet) 1 tab PO DAILY 12/14/20 [History Last Taken Unknown] nitroglycerin 0.4 mg sublingual tablet 0.4 mg sublingual Q5M chest pain 06/23/21 [History Last Taken Unknown] acetaminophen 500 mg capsule 500 mg PO Q6H PRN Mild Pain (Scale Score 1-4) 11/05/21 [History Last Taken Unknown] aspirin 81 mg tablet,delayed release (Adult Aspirin Regimen) 81 mg PO DAILY 11/05/21 [History Last Taken Unknown] meloxicam 7.5 mg tablet 7.5 mg PO BID 11/05/21 [History Last Taken Unknown] omeprazole 40 mg capsule,delayed release 40 mg PO DAILY #90 caps 11/05/21 [Rx Last Taken Unknown] tramadol 100 mg tablet 100 mg PO BID PRN Severe Pain (Scale Score 7-10) 11/05/21 [History Last Taken Unknown] hydrocodone-acetaminophen 5-325mg 5mg-325mg 1 tab PO Q4H PRN PRN Pain 2 days #10 TABLETS 01/24/22 [Rx Last Taken Unknown] ondansetron 4 mg disintegrating tablet 4 mg PO Q8H PRN PRN Nausea #10 tabs 01/24/22 [Rx Last Taken Unknown] ondansetron 4 mg disintegrating tablet 4 mg PO Q8H PRN nausea and vomiting #10 tabs 07/26/22 [Rx Last Taken Unknown] oxycodone-acetaminophen 5 mg-325 mg tablet (Percocet) 1 tab PO Q6H PRN pain 3 days #10 tabs 07/26/22 [Rx Last Taken Unknown] Allergy/AdvReac Type Severity Reaction Status Date / Time No Known Allergies Allergy Verified 07/26/22 14:49 Family History Mother Breast cancer Sister Breast cancer Father Cancer Surgical History H/O knee surgery Rectocele Social History Smoking Status: Never smoker alcohol intake: never ROS <JOSEPHINE Rae - Last Filed: 07/26/22 16:58> ROS ED ROS Narrative Constitutional: Negative for fever, chills, weight loss, weakness Eyes: Negative for vision loss, vision change, double vision ENT: Negative for any sore throat, ear pain, congestion Cardiovascular: Negative for any chest pain, tightness, palpitations Respiratory: Negative for any cough, sputum production, hemoptysis, dyspnea, dyspnea on exertion, orthopnea Gastrointestinal: Negative for any abdominal pain, nausea, vomiting, diarrhea, constipation, blood in stool, blood in vomit : Negative for any urinary frequency, dysuria, retention, blood in urine Muscle skeletal: Negative for any muscle joint pain, stiffness, myalgias, arthralgias, neck pain. Positive for left-sided flank Neurological: Negative for any headache, syncope, numbness or tingling, dizziness Skin: Negative for any rashes, lumps, itching, abrasions, lacerations Psychiatric: Negative for any depression, anxiety, stress, suicidal ideation, homicidal ideation Hematologic: Negative for any easy bruising, excessive bruising, easy bleeding Allergies: Negative for any eczema, hives, rash EXAM <JOSEPHINE Rae - Last Filed: 07/26/22 16:58> Physical Exam Narrative Exam Narrative: Vital signs reviewed. Patient does appear to be in moderate distress secondary to left-sided flank pain, she is continuing to pace in the room HEET: Head normocephalic atraumatic, TMs clear bilaterally. Posterior pharynx is clear, moist mucous membranes. Nares clear bilaterally. Neck: Supple with no lymphadenopathy or tenderness. No signs of meningismus, negative jolt sign. Cardiac: Regular rate and rhythm no murmurs gallops or rubs, equal peripheral pulses bilaterally. Respiratory: Lungs clear to auscultation bilaterally. No chest tenderness. Abdomen: Soft, nontender, nondistended. No abdominal bruit or pulsatile masses. No hepatosplenomegaly Extremities: No peripheral edema, no signs of gross trauma or deformity. Active full range of motion of all extremities. Neuro: Cranial nerves II through XII intact, no focal neurological deficits. Skin: Clean dry and intact with no rash, purpura, petechiae, vesicles or pustules. Backs/flank: Positive left-sided CVA tenderness., no midline spinal tenderness, no deformity. Psych: Normal mood and affect. No SI, HI or acute psychosis. Const Vital Signs: 07/26/22 14:49 07/26/22 16:37 Temperature 96.3 F L Temperature Source Temporal Pulse Rate 97 78 Respiratory Rate 18 16 Blood Pressure 152/70 H 127/64 H Blood Pressure Mean 97 85 Pulse Ox 100 97 Oxygen Delivery Method Room Air Room Air Positive well nourished and well developed General Appearance ED: well developed <Dr. Sebastian Thomas MD - Last Filed: 07/26/22 15:22> Physical Exam Const Vital Signs: 07/26/22 14:49 07/26/22 16:37 Temperature 96.3 F L Temperature Source Temporal Pulse Rate 97 78 Respiratory Rate 18 16 Blood Pressure 152/70 H 127/64 H Blood Pressure Mean 97 85 Pulse Ox 100 97 Oxygen Delivery Method Room Air Room Air MDM <JOSEPHINE Rae - Last Filed: 07/26/22 16:58> MDM Lab Data Labs: Laboratory Results - last 24 hr 07/26/22 07/26/22 07/26/22 15:10 15:10 15:25 WBC 8.1 RBC 4.43 Hgb 13.9 Hct 42.4 MCV 95.7 MCH 31.4 MCHC 32.8 RDW Std Deviation 42.5 RDW Coeff of Marian 12.2 Plt Count 300 MPV 9.2 Immature Gran % (Auto) 0.200 Neut % (Auto) 74.8 H Lymph % (Auto) 17.8 L [place] % (Auto) 5.4 Eos % (Auto) 1.4 Baso % (Auto) 0.4 Absolute Neuts (auto) 6.1 Absolute Lymphs (auto) 1.45 Nucleated RBC % 0 Sodium 144 Potassium 4.1 Chloride 111 H Carbon Dioxide 25.0 Anion Gap 8 BUN 15 Creatinine 0.93 Estim Creat Clear Calc 52.08 Est GFR (MDRD) Af Amer 78 Est GFR (MDRD) Non-Af 64 BUN/Creatinine Ratio 16.1 Glucose 135 H Calcium 9.1 Urine Color Yellow Urine Clarity Sl. Cloudy Urine pH 5.0 Ur Specific [place] 1.030 Urine Protein 15 H Urine Glucose (UA) Normal Urine Ketones 5 H Urine Occult Blood 250 H Urine Nitrite Negative Urine Bilirubin Negative Urine Urobilinogen Normal Ur Leukocyte Esterase 25 H Urine RBC 0-5 SEEN Urine WBC 0-5 SEEN Ur Squamous Epith Cells 5-10 SEEN Urine Bacteria 1+ Urine Mucus 0 SEEN Radiography Diagnostic Testing: Clinical Impression(s) from Imaging Studies Abdomen/Pelvis CT 07/26/22 15:06 IMPRESSION: (NOT LISTED IN ORDER OF SIGNIFICANCE) Mild hydronephrosis caused by left 2.5 mm distal ureteral stone. Series 2 image 142. Stable ill-defined hypodensities in the liver. Recommend hepatic MR. Stable left adrenal adenoma. No follow up required. Hysterectomy changes. Enlarged liver. Other findings as above. Electronically Signed: Rogerio Norton MD at 16:24 EDT , Treatment and Re-Evaluation Narrative: Patient presents the [facility] mild distress secondary to left-sided flank pain. Patient received a flank pain/kidney stone work-up. Patient's laboratory values showed a normal CBC, normal chemistries. Patient's urinalysis shows blood however no infection. Patient CT of the abdomen pelvis without IV contrast, this did show mild hydronephrosis caused by a left 2.5 mm distal ureteral stone. She does have some stable ill-defined hypodense to the liver, stable left adrenal adenoma. Patient was given IV fluids, IV Zofran and IV morphine. Patient was then given IV Toradol. At this time shows no indication of any UTI, pyelonephritis Patient after IV Toradol was in a much more position of comfort. At this time, there is no indication of any infection. Patient be placed on Percocet, Zofran, will follow-up with her known urologist. She was given strict return precautions. At this time, patient is stable for discharge. <Dr. Sebastian Thomas MD - Last Filed: 07/26/22 15:22> MDM MDM Narrative Medical decision making narrative: Seen and evaluated independently and in conjunction with TRANSFUSION NURSE. Agree with notes above unless documented otherwise. Patient with history of stones feels like she has another 1, left flank pain wrapping around, tender in the left CVA, otherwise benign exam and in no distress just uncomfortable pacing around the room. We will scan her for sizing and further assessment, in addition to treating her symptoms and ruling out urine infection. Lab Data Attestation: I reviewed the patient's lab results. Labs: Laboratory Results - last 24 hr 07/26/22 07/26/22 07/26/22 15:10 15:10 15:25 WBC 8.1 RBC 4.43 Hgb 13.9 Hct 42.4 MCV 95.7 MCH 31.4 MCHC 32.8 RDW Std Deviation 42.5 RDW Coeff of Marian 12.2 Plt Count 300 MPV 9.2 Immature Gran % (Auto) 0.200 Neut % (Auto) 74.8 H Lymph % (Auto) 17.8 L [place] % (Auto) 5.4 Eos % (Auto) 1.4 Baso % (Auto) 0.4 Absolute Neuts (auto) 6.1 Absolute Lymphs (auto) 1.45 Nucleated RBC % 0 Sodium 144 Potassium 4.1 Chloride 111 H Carbon Dioxide 25.0 Anion Gap 8 BUN 15 Creatinine 0.93 Estim Creat Clear Calc 52.08 Est GFR (MDRD) Af Amer 78 Est GFR (MDRD) Non-Af 64 BUN/Creatinine Ratio 16.1 Glucose 135 H Calcium 9.1 Urine Color Yellow Urine Clarity Sl. Cloudy Urine pH 5.0 Ur Specific [place] 1.030 Urine Protein 15 H Urine Glucose (UA) Normal Urine Ketones 5 H Urine Occult Blood 250 H Urine Nitrite Negative Urine Bilirubin Negative Urine Urobilinogen Normal Ur Leukocyte Esterase 25 H Urine RBC 0-5 SEEN Urine WBC 0-5 SEEN Ur Squamous Epith Cells 5-10 SEEN Urine Bacteria 1+ Urine Mucus 0 SEEN Radiography Diagnostic Testing: Clinical Impression(s) from Imaging Studies Abdomen/Pelvis CT 07/26/22 15:06 IMPRESSION: (NOT LISTED IN ORDER OF SIGNIFICANCE) Mild hydronephrosis caused by left 2.5 mm distal ureteral stone. Series 2 image 142. Stable ill-defined hypodensities in the liver. Recommend hepatic MR. Stable left adrenal adenoma. No follow up required. Hysterectomy changes. Enlarged liver. Other findings as above. Electronically Signed: Rogerio Norton MD at 16:24 EDT , Discharge Plan Triage Chief Complaint: Flank Pain ED Midlevel Provider: Mele Nichols ED Provider: Sebastian Thomas Dx/Rx/DC Orders Clinical Impression: Kidney stone on left side Instructions: ED Kidney Stone w/ Colic Prescriptions: New oxycodone-acetaminophen [Percocet] 5-325 mg tablet 1 tab PO Q6H PRN (Reason: pain) 3 Days Qty: 10 0RF ondansetron 4 mg tablet,disintegrating 4 mg PO Q8H PRN (Reason: nausea and vomiting) Qty: 10 0RF No Action multivitamin,rq-ibjx-xveowrqq tablet 1 tab PO DAILY flaxseed oil 1,000 mg capsule 1,000 mg PO DAILY Rx Instructions: administer with a meal meloxicam 7.5 mg tablet 7.5 mg PO BID aspirin [Adult Aspirin Regimen] 81 mg tablet,delayed release (DR/EC) 81 mg PO DAILY tramadol 100 mg tablet 100 mg PO BID PRN (Reason: Severe Pain (Scale Score 7-10)) acetaminophen 500 mg capsule 500 mg PO Q6H PRN (Reason: Mild Pain (Scale Score 1-4)) omeprazole 40 mg capsule,delayed release(DR/EC) 40 mg PO DAILY Qty: 90 2RF nitroglycerin 0.4 mg tablet, sublingual 0.4 mg sublingual Q5M Label Comments: PLACE ONE TABLET UNDER THE TONGUE NEEDED FOR CHEST DISCOMFORT. MAY REPEAT IN 10 MINUTES, BUT IF A 3RD DOSE IS NEEDED CALL AMBULANCE. hydrocodone-acetaminophen [hydrocodone-acetaminophen] 1 TABLET tablet 1 tab PO Q4H PRN PRN (Reason: Pain) 2 Days Qty: 10 0RF ondansetron [ondansetron] 4 MG tablet 4 mg PO Q8H PRN PRN (Reason: Nausea) Qty: 10 0RF Primary Care Provider: Tobin Cevallos Referrals: Tobin Cevallos MD [Primary Care Provider] - Activity Restrictions/Additional Instructions: Please follow-up with your urologist. Return for any infectious symptoms, fever chills Disposition Disposition: Home, Self Care
[2022-07-26 15:18] LABS: Absolute Lymphocyte Count 1.45 X10^3/uL (0.83-4.51); Absolute Neutrophil Count 6.1 X10^3/uL (2.0-7.7); Basophil# 0.03 X10^3/uL; Basophil% 0.4 % (0-1); Eosinophil# 0.11 X10^3/uL; Eosinophils% 1.4 % (0-5); Hematocrit 42.4 % (37-47); Hemoglobin 13.9 g/dL (12.0-15.0); Lymphocyte # 1.45 X10^3/ul (0.83-4.51); Lymphocyte % 17.8 % (19-41); Mean Corp Hgb Conc 32.8 g/dL (32-36); Mean Corpuscular Hgb 31.4 pg (27.0-32.0); Mean Corpuscular Volume 95.7 fL (81-99); Mean Platelet Vol. 9.2 fl (6.2-12.0); Monocyte# 0.44 X10^3/uL; Monocyte% 5.4 % (0-10); NRBC Flagged by Analyzer 0 % (0-5); Neutrophil # 6.09 X10^3/uL (2.7-7.7); Neutrophil % 74.8 % (47-70); Platelet Count 300 K/mm3 (150-450); RBC Distribution Width CV 12.2 % (11.6-14.6); RBC Distribution Width SD 42.5 fl (35.1-43.9); Red Blood Count 4.43 M/mm3 (4.2-5.4); White Blood Count 8.1 K/mm3 (4.4-11.0)
[2022-07-26] MEDS: Morphine 4 MG/ML Syringe IV (15:22)
[2022-07-26] MEDS: 0.9% Normal Saline 1,000 ML 1000 ML IV (15:22)
[2022-07-26] MEDS: Ondansetron 4 MG/2 ML Vial IV (15:23)
[2022-07-26 15:30] LABS: Anion Gap 8 (5-15); BUN 15 mg/dL (7-18); BUN/Creat Ratio 16.1 RATIO (10-20); Calcium,Total 9.1 mg/dL (8.5-10.1); Chloride 111 mmol/L (98-107); Creatinine, Serum 0.93 mg/dL (0.55-1.02); EST Glomerular Filtration Rate 64 mL/min (>60); Est Glom Filt Rate - Afr Amer 78 mL/min (>60); Estimated Creatinine Clearance 52.08 ml/min; Glucose 135 mg/dL (74-106); Potassium 4.1 mmol/L (3.5-5.1); Sodium Level 144 mmol/L (136-145)
[2022-07-26 15:33] LABS: Mucous, Urine 0 SEEN /hpf (<or=2+)
[2022-07-26 15:37] LABS: Color, Urine Yellow (Yellow); Glucose, Dipstick Normal (Normal); Ketone-Dipstick 5 mg/dl (Negative); Leukocyte Esterase-Dipstick 25 /ul (Negative); Nitrite-Dipstick Negative (Negative); Occult Blood-Urine 250 /ul (Negative); Protein-Dipstick 15 mg/dl (Negative); Urine Bilirubin Dipstick Negative (Negative); Urine Clarity Sl. Cloudy (Clear); Urine Urobilinogen Normal (Normal)
[2022-07-26] MEDS: Ketorolac 15 MG/ML Vial IV (16:07)
[2022-07-26 16:13] LABS: Bacteria 1+ /hpf (None Seen); Red Blood Cells-Urine 0-5 SEEN /hpf (0-5); Squamous Epithelial Cells - UA 5-10 SEEN /hpf (5-10); White Blood Cells 0-5 SEEN /hpf (0-5)
[2022-07-26 16:37] VITALS: BP 127/64; PULSE 78; RESP 16; O2SAT 97
== END 2022-07-26 17:05 | disposition home or self-care (01) ==
PROVIDERS: Nurse Practitioner; Emergency Provider Emergency Medicine; PCP Family Medicine; Visit Provider Emergency Medicine
DX: N13.2 Hydronephrosis with renal and ureteral calculous obstruction (principal); R11.2 Nausea with vomiting, unspecified; R10.9 Unspecified abdominal pain; Z87.442 Personal history of urinary calculi; Z86.16 Personal history of COVID-19
CPT/HCPCS: 74176; 80048; 81001; 85025; 96361; 96374; 96375; 99282; J7030; A4216; J2405

== ENCOUNTER 2022-08-15 15:25 | Emergency (ER) | payer MEDICARE, SELFPAY ==
[2022-08-15 15:27] VITALS: BP 137/64; PULSE 89; RESP 16; TEMP 36.5; O2SAT 97; BMI 32.5
--- NOTE | 2022-08-15 15:49 | RAD_ITS ---
STUDY: X-RAY - LEFT ANKLE REASON FOR EXAM: Female, 67 years old. Trauma TECHNIQUE: 3 view(s) of the ankle. COMPARISON: None. FINDINGS: Normal visualized distal tibia and fibula. Normal medial and lateral malleoli. Normal tibiotalar articulation and ankle mortise. Normal visualized talus and calcaneus. Small plantar calcaneal enthesophyte. The visualized subtalar, talonavicular, calcaneocuboid and tarsal articulations are normal. The soft tissue structures are unremarkable. RAD/Ankle min 3 Views IMPRESSION: Normal x-ray examination of the ankle. Electronically Signed: Kenny Her MD at 16:01 EDT ,
--- NOTE | 2022-08-15 15:58 | EDS_ITS ---
HPI History of Present Illness Chief Complaint: Fall Informant: patient Narrative Narrative: Patient was carrying items up and down steps helping her daughter move. Her shoe caught and she slipped. She ended up landing on her left ankle and sliding down steps. The triage note mentions her knee and ankle hurting. She denies her knee hurting. She states she had a knee replacement but her knee does not hurt at all. All the pain is at the left ankle. She denies any other injury. No numbness tingling weakness. She never hit her head. Only anticoagulation is aspirin. Weightbearing makes it worse but she is able to do it. Nothing makes it better other than rest PFSH [facility] Medical History COVID-19 virus detected (06/19/21) Seasonal allergies Home Medications flaxseed oil 1,000 mg capsule 1,000 mg PO DAILY 12/14/20 [History Last Taken Unknown] multivitamin,km-hfsh-zoaacaqu (Complete Multivitamin tablet) 1 tab PO DAILY 12/14/20 [History Last Taken Unknown] nitroglycerin 0.4 mg sublingual tablet 0.4 mg sublingual Q5M chest pain 06/23/21 [History Last Taken Unknown] acetaminophen 500 mg capsule 500 mg PO Q6H PRN Mild Pain (Scale Score 1-4) 11/05/21 [History Last Taken Unknown] aspirin 81 mg tablet,delayed release (Adult Aspirin Regimen) 81 mg PO DAILY 11/05/21 [History Last Taken Unknown] meloxicam 7.5 mg tablet 7.5 mg PO BID 11/05/21 [History Last Taken Unknown] omeprazole 40 mg capsule,delayed release 40 mg PO DAILY #90 caps 11/05/21 [Rx Last Taken Unknown] tramadol 100 mg tablet 100 mg PO BID PRN Severe Pain (Scale Score 7-10) 11/05/21 [History Last Taken Unknown] hydrocodone-acetaminophen 5-325mg 5mg-325mg 1 tab PO Q4H PRN PRN Pain 2 days #10 TABLETS 01/24/22 [Rx Last Taken Unknown] ondansetron 4 mg disintegrating tablet 4 mg PO Q8H PRN PRN Nausea #10 tabs 01/24/22 [Rx Last Taken Unknown] ondansetron 4 mg disintegrating tablet 4 mg PO Q8H PRN nausea and vomiting #10 tabs 07/26/22 [Rx Last Taken Unknown] oxycodone-acetaminophen 5 mg-325 mg tablet (Percocet) 1 tab PO Q6H PRN pain 3 days #10 tabs 07/26/22 [Rx Last Taken Unknown] Allergy/AdvReac Type Severity Reaction Status Date / Time No Known Allergies Allergy Verified 07/26/22 14:49 Family History Mother Breast cancer Sister Breast cancer Father Cancer Surgical History H/O knee surgery Rectocele Social History Smoking Status: Never smoker alcohol intake: never ROS ROS ED Cardiovascular Cardiovascular: Denies chest pain or palpitations Respiratory/Chest Respiratory/Chest: Denies dyspnea Gastrointestinal Gastrointestinal: Denies nausea or vomiting Musculoskeletal Musculoskeletal: Reports arthralgias; Denies back pain or neck pain Integumentary Denies Abrasions or rash Neurologic Neurologic: Denies headache(s), paresthesias or weakness Hematologic/Lymphatic Hematologic/Lymphatic: Denies easy bleeding or easy bruising EXAM Physical Exam Const Vital Signs: 08/15/22 15:27 08/15/22 15:33 Temperature 97.7 F L Temperature Source Temporal Pulse Rate 89 Respiratory Rate 16 Respiratory Effort Normal Non-Labored Respiratory Depth Normal Respiratory Pattern Normal Blood Pressure 137/64 H Blood Pressure Mean 88 Pulse Ox 97 Oxygen Delivery Method Room Air Room Air Positive well nourished and well developed Constitutional Narrative: Patient is sitting comfortably on bed with ice pack on the ankle. General Appearance ED: well developed and NAD HEENT atraumatic; Negative for trauma or tenderness Neck full ROM General: Negative for tenderness Resp normal respiratory effort Cardio regular rhythm Back/Spine no thoracic nor lumbar tenderness Extremity Extremity Narrative: Patient has some mild tenderness diffusely around the left ankle. Achilles is intact to both palpation and Murillo test. No tenderness higher up the tibia or fibula. No tenderness anywhere at the knee with palpation or range of motion. Calcaneus is not tender. No tenderness to the fifth metatarsal or remainder of foot or toe. No deformities noted. No abrasions or lacerations. Skin no wounds Trauma: Negative for abrasion MDM MDM MDM Narrative Medical decision making narrative: X-ray shows no acute process. Patient will be given Aircast. She should use ice elevation rest and [id number] meds. If it still hurting in a couple weeks and repeat imaging may be needed. Radiography Diagnostic Testing: Clinical Impression(s) from Imaging Studies Ankle X-Ray 08/15/22 15:49 IMPRESSION: Normal x-ray examination of the ankle. Electronically Signed: Kenny Her MD at 16:01 EDT , Three-view x-ray of the ankle looked at by me and read by radiology shows no acute fracture. Discharge Plan Triage Chief Complaint: Fall ED Provider: Parminder Pramar Dx/Rx/DC Orders Clinical Impression: Fall from steps, Injury of ankle, left Instructions: ED Ankle Sprain (Adult) Prescriptions: No Action multivitamin,kj-mdhh-ezgodrid tablet 1 tab PO DAILY flaxseed oil 1,000 mg capsule 1,000 mg PO DAILY Rx Instructions: administer with a meal meloxicam 7.5 mg tablet 7.5 mg PO BID aspirin [Adult Aspirin Regimen] 81 mg tablet,delayed release (DR/EC) 81 mg PO DAILY tramadol 100 mg tablet 100 mg PO BID PRN (Reason: Severe Pain (Scale Score 7-10)) acetaminophen 500 mg capsule 500 mg PO Q6H PRN (Reason: Mild Pain (Scale Score 1-4)) omeprazole 40 mg capsule,delayed release(DR/EC) 40 mg PO DAILY Qty: 90 2RF nitroglycerin 0.4 mg tablet, sublingual 0.4 mg sublingual Q5M Label Comments: PLACE ONE TABLET UNDER THE TONGUE NEEDED FOR CHEST DISCOMFORT. MAY REPEAT IN 10 MINUTES, BUT IF A 3RD DOSE IS NEEDED CALL AMBULANCE. hydrocodone-acetaminophen [hydrocodone-acetaminophen] 1 TABLET tablet 1 tab PO Q4H PRN PRN (Reason: Pain) 2 Days Qty: 10 0RF ondansetron [ondansetron] 4 MG tablet 4 mg PO Q8H PRN PRN (Reason: Nausea) Qty: 10 0RF oxycodone-acetaminophen [Percocet] 5-325 mg tablet 1 tab PO Q6H PRN (Reason: pain) 3 Days Qty: 10 0RF ondansetron 4 mg tablet,disintegrating 4 mg PO Q8H PRN (Reason: nausea and vomiting) Qty: 10 0RF Primary Care Provider: Tobin Cevallos Referrals: Tobin Cevallos MD [Primary Care Provider] - 1-2 Weeks Disposition Disposition: Home, Self Care
== END 2022-08-15 16:56 | disposition home or self-care (01) ==
PROVIDERS: Emergency Provider Emergency Medicine; PCP Family Medicine; Visit Provider Emergency Medicine
DX: S99.912A Unspecified injury of left ankle, initial encounter (principal); W10.9XXA Fall (on) (from) unspecified stairs and steps, initial encounter; Z86.16 Personal history of COVID-19
CPT/HCPCS: 73610; 99283

== ENCOUNTER → 2022-08-24 | Outpatient (CLI) | payer MEDICARE, SELFPAY ==
--- NOTE | 2022-08-24 10:19 | MRI_ITS ---
STUDY: MRI ABDOMEN WITH AND WITHOUT CONTRAST REASON FOR EXAM: Female, [address] TECHNIQUE: Standardized fat and water weighted pulse sequences were obtained in all 3 orthogonal planes post contrast administration. IV 18ml clariscan was administered for the contrast portion of the examination. COMPARISON: CT 07/26/2022 FINDINGS: The visualized lung bases are unremarkable. The visualized portions of the heart are within normal limits. There are 3 subcentimeter hyperintense lesions within the posterior segment of the right lobe of the liver as suggested on CT. The largest measures 1.0 cm in diameter in the superior aspect of the posterior segment right lobe and demonstrates peripheral globular enhancement which fills in over time consistent with a hemangioma. The other 2 lesions are significantly smaller than 1 cm in diameter and demonstrates similar contrast enhancement likely consistent with hemangiomas as well. Normal gallbladder and extrahepatic biliary system. Normal spleen. Normal pancreas. There is a well circumscribed, round mass lesion of the left adrenal gland with hyperintense signal on the T1W1 gradient-echo in phase images as compared to the spleen with signal loss on the T1W1 gradient-echo opposed phase images consistent with a lipid rich adrenal adenoma. Normal right kidney. Normal left kidney. Normal visualized stomach. Normal small intestine. Normal colon. The appendix is visualized and appears normal. Normal abdominal aorta. Normal inferior vena cava. Normal retroperitoneum. Normal abdominal wall. Normal osseous structures. MRI/MRI Abd WITH and W/O Contrast IMPRESSION: MRI confirms multiple small hemangiomas in the posterior segment right lobe corresponding to the masses seen on CT. Electronically Signed: Kenny Her MD at 12:02 EDT ,
== END | disposition home or self-care (01) ==
LOC: MRI 10:14
PROVIDERS: PCP Family Medicine; Visit Provider Family Medicine
DX: R93.5 Abnormal findings on diagnostic imaging of other abdominal regions, including retroperitoneum (principal)
CPT/HCPCS: 74183; A9575; A4216

== ENCOUNTER → 2023-04-05 | Outpatient (CLI) | payer MEDICARE, SELFPAY ==
--- NOTE | 2023-04-05 08:20 | BI_ITS ---
MAMMOGRAPHY - BILATERAL SCREENING REASON FOR EXAM: Female, 68 years old. Routine annual screening examination. PERTINENT HISTORY: Sister with breast cancer. Mother with breast cancer. TECHNIQUE: Digital bilateral breast brinda (3D mammographic acquisition) in the CC and MLO projections. 2-D mediolateral oblique (MLO) and craniocaudad (CC) views of both breasts were obtained. CAD: Full Field Digital Mammography with Computer Added Detection was performed. COMPARISON: Comparison is made with prior study dated March 30, 2022 and March 28, 2021. Breast Composition: There are scattered areas of fibroglandular density. There are no dominant masses or suspicious calcifications. No other significant abnormalities are identified. There has been no significant change since the prior study. BI/SCRN MAMM (CAD)W/BRINDA BILAT IMPRESSION: Stable bilateral screening mammogram. Yearly follow-up mammogram recommended. (A) ASSESSMENT CATEGORY: BIRADS Category 1: Negative. A letter regarding these results will be sent to the patient by the facility within 30 days. Approximately 10% of breast cancers are not detected by mammography. A normal mammogram should not delay biopsy of a clinically suspicious abnormality. [id number] Electronically Signed: Juventino Hernandez MD at 9:27 EDT ,
== END | disposition home or self-care (01) ==
LOC: OPBI 08:18
PROVIDERS: PCP Family Medicine; Referring Provider Family Medicine; Visit Provider Family Medicine
DX: Z12.31 Encounter for screening mammogram for malignant neoplasm of breast (principal); Z80.3 Family history of malignant neoplasm of breast
CPT/HCPCS: 77063; 77067

== ENCOUNTER → 2024-02-19 | Outpatient (CLI) | payer MEDICARE, SELFPAY ==
[2024-02-19 09:53] LABS: Absolute Neutrophil Count 3.5 X10^3/uL (2.0-7.7); Basophil# 0.05 X10^3/uL; Basophil% 0.8 % (0-1); Eosinophil# 0.22 X10^3/uL; Eosinophils% 3.6 % (0-5); Hematocrit 43.3 % (37-47); Hemoglobin 14.1 g/dL (12.0-15.0); Lymphocyte % 29.8 % (19-41); Mean Corp Hgb Conc 32.6 g/dL (32-36); Mean Corpuscular Hgb 31.3 pg (27.0-32.0); Mean Corpuscular Volume 96.2 fL (81-99); Mean Platelet Vol. 9.3 fl (6.2-12.0); Monocyte# 0.49 X10^3/uL; Monocyte% 8.1 % (0-10); NRBC Flagged by Analyzer 0 % (0-5); Neutrophil # 3.46 X10^3/uL (2.7-7.7); Neutrophil % 57.4 % (47-70); Platelet Count 289 K/mm3 (150-450); RBC Distribution Width CV 12.4 % (11.6-14.6); RBC Distribution Width SD 44.3 fl (35.1-43.9)
[2024-02-19 10:27] LABS: ALB/GLOB Ratio 1.1 RATIO (0.9-2.4); AST(SGOT) 16 U/L (15-37); Alanine Aminotransfer ALT/SGPT 19 U/L (13-56); Albumin, Serum 3.7 g/dL (3.2-5.0); Alkaline Phosphatase 85 U/L (45-117); Anion Gap 3 (5-15); BUN 16 mg/dL (7-18); BUN/Creat Ratio 25.8 RATIO (10-20); Chloride 110 mmol/L (98-107); Cholesterol 193 mg/dL (200); Creatinine, Serum 0.62 mg/dL (0.55-1.02); EST Glomerular Filtration Rate 102 mL/min (>60); Est Glom Filt Rate - Afr Amer 124 mL/min (>60); Globulin 3.5 g/dL (2.2-4.2); Glucose 86 mg/dL (74-106); High Density Lipoprotein 54 mg/dL; Potassium 3.8 mmol/L (3.5-5.1); Protein, Total 7.2 g/dL (6.4-8.2); Sodium Level 142 mmol/L (136-145); Thyroid Stim Hormone (TSH) 0.87 uIU/mL (0.358-3.74); Triglycerides 121 mg/dL; Very Low Density Lipoprotein 24 mg/dL (5-40)
[2024-02-21 08:16] LABS: Vitamin D,25 Hydroxy 19.6 ng/mL
== END | disposition home or self-care (01) ==
PROVIDERS: PCP Family Medicine; Referring Provider Family Medicine; Visit Provider Family Medicine
DX: Z13.220 Encounter for screening for lipoid disorders (principal); R07.89 Other chest pain; E55.9 Vitamin D deficiency, unspecified
CPT/HCPCS: 36415; 80053; 80061; 82306; 84443; 85025

== ENCOUNTER → 2024-11-27 | Outpatient (CLI) | payer MEDICARE, SELFPAY ==
--- NOTE | 2024-11-27 10:35 | RAD_ITS ---
EXAM: HIP, UNI W/ PELVIS 2-3 VIEWS CLINICAL HISTORY: Left lower extremity pain following a recent fall. COMPARISON: None. TECHNIQUE: Imaging of the pelvis and both hips was obtained. FINDINGS: There is a moderate degree of joint space narrowing involving both hip joints left greater than right with acetabular spur formation. No evidence of fracture or dislocation. Phleboliths are seen in the pelvis. Left-sided fallopian tube clips are seen. Degenerative changes of the sacroiliac joints as well as the lower lumbar spine. RAD/HIP, UNI W/ Pelvis 2-3 Views IMPRESSION: Osteoarthritis of both hip joints left worse than right with degenerative enrique es of sacroiliac joints as well as the lower lumbar spine. [id number]
== END | disposition home or self-care (01) ==
PROVIDERS: PCP Family Medicine; Referring Provider Nurse Practitioner Family; Visit Provider Nurse Practitioner Family
DX: M79.605 Pain in left leg (principal)
CPT/HCPCS: 73502